=== PATIENT | female | born 1960 | race Caucasian/White ===

== ENCOUNTER 2016-08-28 19:19 | Emergency (ER) | payer BC, OTHER ==
[2016-08-28 19:42] VITALS: BP 137/80; PULSE 65; TEMP 97.4; BMI 24.2
--- NOTE | 2016-08-28 19:46 | PDOC ---
History of Present Illness - History of Present Illness Initial Comments: 08/28/16 20:11 The patient is a 56 year old female with no past medical hx who presents to the ED complaining of left sided neck pain and left shoulder pain for two days. She notes the pain has been constant and is exacerbated with movement. The patient notes she has also been feeling lightheaded and tired so she went to an Urgent Care today. She states she was sent to the ED by the Urgent Care for further evaluation. The patient reports she had this pain in her neck and shoulder a few months ago and it went away on its own. She reports some diarrhea the past few days, but denies any melena or hematochezia. The patient denies fever, body aches, sore throat. The patient denies any nausea, vomiting. The patient denies any numbness, tingling. The patient denies any recent travel or sick contacts. Family hx: Cardiac problems Social: Nonsmoker <Shagufta Allen - Last Filed: 08/28/16 20:12> <Eli Kyle - Last Filed: 08/29/16 02:14> - General Chief Complaint: Lightheaded Stated Complaint: NECK/SHOULDER PAIN Time Seen by Provider: 08/28/16 19:29 Past History <Shagufta Allen - Last Filed: 08/28/16 20:12> - Past Medical History Other medical history: SEASONAL ALLERGIES - Psycho/Social/Smoking Cessation Hx Anxiety: No Suicidal Ideation: No Smoking History: Never smoked <Eli Kyle - Last Filed: 08/29/16 02:14> - Past Medical History Allergies/Adverse Reactions: Allergies Allergy/AdvReac Type Severity Reaction Status Date / Time No Known Allergies Allergy Unverified 08/28/16 19:24 Home Medications: Ambulatory Orders NK [No Known Home Medication] 08/28/16 Review of Systems - Review of Systems Able to Perform ROS?: Yes Comments:: 08/28/16 20:11 CONSTITUTIONAL: +Fatigue. Absent: fever, no chills EYES: Absent: visual changes ENT: Absent: ear pain, no sore throat CARDIOVASCULAR: Absent: chest pain, no palpitations RESPIRATORY: Absent: cough, no SOB GI: Absent: abdominal pain, no nausea, no vomiting, no constipation, no diarrhea GENITOURINARY: Absent: dysuria, no frequency, no hematuria MUSCULOSKELETAL: +Neck pain, left shoulder pain. Absent: back pain SKIN: Absent: rash NEURO: +Lightheadedness. Absent: headache <Shagufta Allen - Last Filed: 08/28/16 20:12> *Physical Exam - Vital Signs Last Vital Signs Temp Pulse Resp BP Pulse Ox 97.4 F L 65 16 137/80 100 08/28/16 19:24 08/28/16 19:24 08/28/16 19:24 08/28/16 19:24 08/28/16 19:24 - Physical Exam Comments: 08/28/16 20:12 GENERAL: The patient is awake, alert, and fully oriented, in no acute distress. HEAD: Normal with no signs of trauma. EYES: Pupils equal, round and reactive to light, extraocular movements intact, sclera anicteric, conjunctiva clear with no pallor. ENT: +Dry mucous membranes. Ears normal, nares patent, oropharynx clear without exudates. NECK: +Exacerbation of pain with hyperextension of neck, no point tenderness. Normal range of motion, supple without lymphadenopathy, JVD, or masses. LUNGS: Breath sounds equal, clear to auscultation bilaterally. No wheeze/ crackles. HEART: Regular rate and rhythm, normal S1 and S2 without murmur or rub. ABDOMEN: Soft/nontender/nondistended. BS wnl. No guarding or rebound. No palpable masses. No hepatosplenomegaly. EXTREMITIES: Normal range of motion, no edema. No clubbing or cyanosis. No cords, erythema, or tenderness. NEUROLOGICAL: Cranial nerves II through XII grossly intact. Normal speech, normal gait. PSYCH: Normal mood, normal affect. SKIN: Warm, Dry, normal turgor, no rashes or lesions noted. <Shagufta Allen - Last Filed: 08/28/16 20:12> - Vital Signs Last Vital Signs Temp Pulse Resp BP Pulse Ox 97.4 F L 65 16 137/80 100 08/28/16 19:24 08/28/16 19:24 08/28/16 19:24 08/28/16 19:24 08/28/16 19:24 <Eli Kyle - Last Filed: 08/29/16 02:14> Heart Score/ECG Review - History History: Slightly suspicious - Electrocardiogram EKG: Normal - Age Age: 45-65 - Risk Factors Risk Factors Heart Score: Yes Positive family hx of cardiac disease Based on the list above the patient has:: 1-2 risk factors - Troponin Troponin: </= normal limit - Score Heart Score - Total: 2 <Eli Kyle - Last Filed: 08/29/16 02:14> ED Treatment Course - LABORATORY CBC & Chemistry Diagram: 08/28/16 19:35 08/28/16 19:35 <Shagufta Allen - Last Filed: 08/28/16 20:12> - LABORATORY CBC & Chemistry Diagram: 08/28/16 19:35 08/28/16 19:35 <Eli Kyle - Last Filed: 08/29/16 02:14> Medical Decision Making - Medical Decision Making Documentation has been prepared under my direction and personally reviewed by me in its entirety. I attest that this documented accurately reflects all work, treatment, procedures and medical decision making performed by me. As noted above, this 56-year-old woman with no significant past medical history presents with a few day history of left-sided neck and shoulder pain. Pain is exacerbated by movement. She has had this pain previously; she cannot recall any specific overuse or trauma. 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 There are no motor or sensory abnormalities in either upper extremity. Today, the patient felt fatigued in "not herself" area to seen in urgent care and sent here. Patient has not had previous cardiac issues; her only risk factor for coronary artery disease is strong family history (mother had CT and stent in her 50s; father also was younger than 65 at onset of coronary artery disease; siblings have no cardiac disease) Exam as noted above Twelve-lead electrocardiogram shows normal sinus rhythm at 60 eats per minute; axis, intervals and wave forms are all normal. No evidence of acute ST or T- wave abnormalities. Laboratory evaluation including cardiac enzymes are essentially normal except for urinalysis which shows 2 to 5 RBCs/10-20 WBCs/2+ leukocyte esterase; few epi /few bacteria Urine sent for culture and sensitivity. Results discussed with the patient and her . Patient states that she has had urinary tract infections in the past; she has no symptoms consistent with a UTI now. Because of the equivocal results of the urinalysis, urine will be sent for C&S prior to any antibiotic therapy. Patient refused any anti-inflammatory medication for her neck/shoulder pain. Patient currently does not have a PMD; she states that she will research internists who accept her insurance in the area and will be seen in the next several days. Meanwhile, the patient has any persistent pain or onset of severe pain/shortness of breath/nausea she will return to the emergency room <Eli Kyle - Last Filed: 08/29/16 02:14> *DC/Admit/Observation/Transfer - Attestations Scribe Attestion: 08/28/16 20:11 Documentation prepared by Shagufta Allen, acting as medical assembly for Eli Kyle MD/DO. <Shagufta Allen - Last Filed: 08/28/16 20:12> <Eli Kyle - Last Filed: 08/29/16 02:14> Diagnosis at time of Disposition: Urinary frequency Neck strain Qualifiers: Encounter type: initial encounter Qualified Code(s): S16.1XXA - Strain of muscle, fascia and tendon at neck level, initial encounter - Discharge Dispostion Disposition: HOME Condition at time of disposition: Stable - Patient Instructions Printed Discharge Instructions: DI for Neck Pain Additional Instructions: drink plenty of fluids rest;avoid upper body strenuous activity for the next several days motrin/aleve/tylenol as needed for pain return to ER if you have severe pain/shortness of breath/nausea followup with general doctor as discussed
[2016-08-28 20:03] LABS: ALBUMIN 4.3 g/dl (3.5-5.0); ALK PHOS 71 U/L (32-92); ANION GAP 9 (8-16); BILIRUBIN,TOTAL 0.5 mg/dl (0.2-1.0); CALCIUM 9.2 mg/dl (8.4-10.2); CO2 22 mmol/L (22-28); CPK(DFH) 109 IU/L (26-140); CREATININE 0.6 mg/dl (0.6-1.3); GLUCOSE,RANDOM 112 mg/dl (74-106); SGOT/AST 20 U/L (10-42); SGPT/ALT 16 U/L (10-40); TOT PROT 7.2 g/dl (6.4-8.3)
[2016-08-28 20:13] LABS: URINE APPEARANCE Clear; URINE BILIRUBIN Negative (NEGATIVE); URINE BLOOD Trace-intact (NEGATIVE); URINE GLUCOSE (UA) Negative (NEGATIVE); URINE KETONE Negative (NEGATIVE); URINE LEUK ESTERASE 2+ (NEGATIVE); URINE NITRITE Negative (NEGATIVE); URINE PROTEIN Negative (NEGATIVE); URINE UROBILINOGEN 0.2 E.U/dl (0.2-1.0)
[2016-08-28 20:14] LABS: URINE COLOR YELLOW
[2016-08-28 20:19] LABS: TROPONIN I (DFP) < 0.03 ng/ml (0.03-0.50)
[2016-08-28 20:31] LABS: BASOPHIL 2.5 % (0-2.0); EOSINOPHIL 5.3 % (0-4.5); MCH 32.4 pg (25.7-33.7); MCHC 34.7 g/dl (32.0-36.0); MEAN CELL VOLUME 93.3 fl (80-96); MEAN PLT VOLUME 9.9 fl (7.5-11.1); NEUTROPHILS 50.1 % (42.8-82.8); PLATELET COUNT 197 K/MM3 (134-434); RDW 12.5 % (11.6-15.6); WHITE BLOOD COUNT 10.2 K/mm3 (4.0-10.0)
[2016-08-28 20:34] LABS: URINE BACTERIA FEW /hpf (NEGATIVE)
--- NOTE | 2016-08-30 20:35 | EKG ---
Test Reason : Blood Pressure : / mmHG Vent. Rate : 060 BPM Atrial Rate : 060 BPM P-R Int : 166 ms QRS Dur : 086 ms QT Int : 446 ms P-R-T Axes : 046 051 056 degrees QTc Int : 446 ms NORMAL SINUS RHYTHM NORMAL ECG NO PREVIOUS ECGS AVAILABLE Confirmed by JIMI WEST MD ([id number]) on 08/30/2016 8:35:08 PM Referred By: YAMIL GARDNER Confirmed By:JIMI WEST MD
== END 2016-08-28 21:15 | disposition home or self-care (01) ==
LOC: FER 19:19
DX: S16.1XXA Strain of muscle, fascia and tendon at neck level, initial encounter (principal); R35.0 Frequency of micturition; J30.2 Other seasonal allergic rhinitis; X58.XXXA Exposure to other specified factors, initial encounter; Y93.9 Activity, unspecified; Y92.9 Unspecified place or not applicable
CPT/HCPCS: 36415; 80053; 81003; 81015; 82550; 84484; 85025; 87086; 93005; 99283-25